=== PATIENT | female | born 1985 | race Caucasian/White ===

== ENCOUNTER 2017-10-15 20:53 | Inpatient (IN) | payer OTHER ==
[~2017-10-15] VITALS: Ht 152.4 cm; Wt 45.4 kg
[~2017-10-15 20:53] MED LIST: AMOX1TAB12 PO; LEVOTHROID75 MCG PO; SYNTHROID75 MCG
== END 2017-10-17 17:37 | disposition home or self-care (01) | DRG 312 ==
LOC: ER 20:53 → MEDI 10-16 08:02
PROC: B345ZZZ Ultrasonography of Bilateral Common Carotid Arteries (ICD-10-PCS; principal; 2017-10-16)
PROC: B348ZZZ Ultrasonography of Bilateral Internal Carotid Arteries (ICD-10-PCS; 2017-10-16)
PROC: B030ZZZ Magnetic Resonance Imaging (MRI) of Brain (ICD-10-PCS; 2017-10-16)
PROC: B246ZZZ Ultrasonography of Right and Left Heart (ICD-10-PCS; 2017-10-16)
PROC: 4A12X4Z Monitoring of Cardiac Electrical Activity, External Approach (ICD-10-PCS; 2017-10-16)
DX: R55 Syncope and collapse (principal); E03.8 Other specified hypothyroidism
CPT/HCPCS: 70551

== ENCOUNTER → 2020-09-30 | Outpatient (CLI) | payer OTHER ==
[~2020-09-30] MED LIST changes: +PRENATAL + DHA1 EAC1; +SYNTHROID50 MCG
== END | disposition home or self-care (01) ==
LOC: RX STUDY 09-03 10:13 → PRENATAL 09:26 → RX STUDY 09:30
PROVIDERS: ATTEND Obstetrics & Gynecology Maternal & Fetal Medicine
DX: O99.891 Other specified diseases and conditions complicating pregnancy (principal); O36.80X1 Pregnancy with inconclusive fetal viability, fetus 1; O09.521 Supervision of elderly multigravida, first trimester; Z36.89 Encounter for other specified antenatal screening; Z3A.14 14 weeks gestation of pregnancy

== ENCOUNTER 2020-10-04 16:42 | Emergency (ER) | payer OTHER ==
[~2020-10-04] VITALS: Ht 149.9 cm; Wt 54.0 kg
[~2020-10-04 16:42] MED LIST changes: -PRENATAL + DHA1 EAC1; -SYNTHROID50 MCG
[2020-10-04] MEDS ORDERED: PRENATAL + DHA1 EAC1 (17:18)
[2020-10-04] MEDS ORDERED: SYNTHROID50 MCG (17:18)
== END 2020-10-04 19:31 | disposition home or self-care (01) ==
LOC: ER 16:42
DX: K08.89 Other specified disorders of teeth and supporting structures (principal); K13.79 Other lesions of oral mucosa

== ENCOUNTER 2020-11-18 10:06 | Outpatient (CLI) | payer OTHER ==
[~2020-11-18 10:06] MED LIST changes: +PRENATAL + DHA1 EAC1; +SYNTHROID50 MCG
== END 2020-11-18 11:15 | disposition home or self-care (01) ==
LOC: PRENATAL 10:06
PROVIDERS: ATTEND Obstetrics & Gynecology Maternal & Fetal Medicine
DX: O35.0XX1 Maternal care for (suspected) central nervous system malformation in fetus, fetus 1 (principal); O35.3XX1 Maternal care for (suspected) damage to fetus from viral disease in mother, fetus 1; O98.512 Other viral diseases complicating pregnancy, second trimester; O09.522 Supervision of elderly multigravida, second trimester; O99.891 Other specified diseases and conditions complicating pregnancy; Z36.89 Encounter for other specified antenatal screening; Z3A.21 21 weeks gestation of pregnancy

== ENCOUNTER 2021-03-22 08:36 | Inpatient (IN) | payer OTHER ==
[~2021-03-22] VITALS: Ht 149.9 cm; Wt 2.7 kg
[2021-03-25] MEDS ORDERED: IBUPROFEN800 MG PO (07:52)
== END 2021-03-25 14:49 | disposition home or self-care (01) | DRG 788 ==
LOC: OB/GYN 08:36 → LDR 08:36 → O/R 10:22 → OB/GYN 10:34
PROVIDERS: ADMIT Specialist; ATTEND Specialist
PROC: 4A1HXFZ Monitoring of Products of Conception, Cardiac Rhythm, External Approach (ICD-10-PCS; 2021-03-22)
PROC: 10D00Z1 Extraction of Products of Conception, Low, Open Approach (ICD-10-PCS; principal; 2021-03-22 08:00)
DX: O36.8330 Maternal care for abnormalities of the fetal heart rate or rhythm, third trimester, not applicable or unspecified (principal); O99.824 Streptococcus B carrier state complicating childbirth; O99.284 Endocrine, nutritional and metabolic diseases complicating childbirth; E03.9 Hypothyroidism, unspecified; Z3A.38 38 weeks gestation of pregnancy; Z37.0 Single live birth; Z86.16 Personal history of COVID-19

== ENCOUNTER 2022-07-16 09:00 | Emergency (ER) | payer OTHER ==
[~2022-07-16] VITALS: Ht 149.9 cm; Wt 68.0 kg
[~2022-07-16 09:00] MED LIST changes: +IBUPROFEN800 MG PO
[2022-07-16] MEDS ORDERED: SYNTHROID50 MCG (09:22)
== END 2022-07-16 11:47 | disposition home or self-care (01) ==
LOC: ER 09:00
DX: J32.8 Other chronic sinusitis (principal); J40 Bronchitis, not specified as acute or chronic; E03.8 Other specified hypothyroidism

== ENCOUNTER → 2024-06-15 | Day surgery (SDC) | payer OTHER ==
[~2024-06-15] VITALS: Ht 149.9 cm; Wt 59.0 kg
[~2024-06-15] MED LIST changes: +CEFAZOLIN SODIUM 1,000 MG VIAL ONE; +FF) RHO(D) IMMUNE GLOBULIN (POM) IM ONE; +MEPERIDINE HCL/PF 50 MG/ML VIAL IM ONE; +POVIDONE-IODINE 118 ML BOTT TOP ONE; +PROMETHAZINE HCL 25 MG/ML AMPUL IM ONE; +PROMETHAZINE HCL 25 MG/ML AMPUL ONE; +RINGERS SOLUTION,LACTATED 1,000 ML IV SCH
[2024-06-15 13:28] LABS: HEMATOCRIT 40.7 % (36.0-45.00); HEMOGLOBIN 13.6 g/dL (12.0-15.00); MEAN CELL VOLUME 95.3 fL (80.00-100.00); MEAN CORPUSCULAR HEMOGLOBIN 31.9 pg (27.00-32.0); MEAN CORPUSCULAR HGB CONC 33.5 g/dl (32.0-36.0); PLATELET COUNT 330 K/uL (150-450); RED BLOOD COUNT 4.27 M/uL (4.00-6.00); RED CELL DISTRIBUTION WIDTH 13.7 % (11.5-14.5)
[2024-06-15 13:40] LABS: URINE APPEARANCE Cloudy; URINE BILIRRUBIN Negative (NEGATIVE); URINE BLOOD Large; URINE COLOR Orange; URINE GLUCOSE Negative (NEGATIVE); URINE LEUKOCYTE Trace; URINE NITRATE Negative; URINE PROTEIN 30 (NEGATIVE); URINE UROBILINOGEN 0.2 E.U./dl
[2024-06-15 13:41] LABS: URINE BACTERIA 789.4 uL (0.0-1933); URINE CAST 1.62 uL (0.0-1.40); URINE EPITHELIAL CELLS 20.2 uL (0.0-38.8); URINE RBC 3647.1 uL (0.0-20.8); URINE WBC 60.6 uL (0.0-23.2)
[2024-06-15 13:42] LABS: INR 0.96; PARTIAL THROMBOPLASTIN TIME 23.7 SECONDS (22.0-34.0); PROTHROMBIN TIME 10.5 SECONDS (9.0-11.5)
[2024-06-15 13:48] LABS: CALCIUM 9.2 mg/dL (8.5-10.1); CREATININE SERUM 0.54 mg/dL (0.55-1.02); GFR 125.04; POTASSIUM 3.86 mEq/L (3.5-5.1)
[2024-06-15 14:41] LABS: URINE KETONE 40 (NEGATIVE)
[2024-06-15 21:06] VITALS: BP 98/57; O2SAT 100
== END | disposition home or self-care (01) ==
LOC: EDSTATUS 10:40 → ER 10:40 → CIR.AMB 10:45 → ER 10:45 → CIR.AMB 10:45 → ER 18:00 → O/R 18:00
PROVIDERS: ATTEND General Practice
DX: O03.4 Incomplete spontaneous abortion without complication (principal); E03.8 Other specified hypothyroidism